=== PATIENT | male | born 1980 ===

== ENCOUNTER 2022-05-23 11:08 | Emergency (ER) | payer SELFPAY ==
[2022-05-23 11:14] VITALS: BP 153/110; BP 160/100; PULSE 116; PULSE 124; O2SAT 96; O2SAT 98; BMI 24.4
[2022-05-23 11:21] LABS: Glucose, Whole Blood 105 mg/dL (60-115)
--- NOTE | 2022-05-23 11:21 | ED.GENADULT ---
HPI - General Adult General Chief complaint: Overdose Stated complaint: OVERDOSE,4 MG NARCAN Time Seen by Provider: 05/23/22 11:20 Source: patient Mode of arrival: EMS Limitations: no limitations History of Present Illness HPI narrative: 42 yo male with HTN went to urgent care center here with c/o being given 8mg narcan by urgent care for stumbling - he has normal vs and BS - he refuses all interventions with EMS, was awake and talking on scene with EMS no pinpoint pupils or apnea reported. The patient is upset here is here and denies any substance abuse MD complaint: ? found stumbling, reportedly given 8mg narcan by urgent care awake with EM Onset (ago): minute(s) (just prior to arrival ) Severity: mild Relieving factors: none Associated symptoms: denies other symptoms Treatments prior to arrival: other (?narcan 8mg) Review of Systems Review of Systems: Constitutional : No Fever, No Chills, No Fatigue, No Malaise Cardiovascular : No Chest Pain, No SOB Respiratory : No Cough, No Sputum, No Wheezing Gastrointestinal : No Nausea, No Vomiting, No Diarrhea, No abdominal Pain, No Hematochezia, No Melena Genitourinary : No Dysuria, No Urinary Frequency, No Hematuria, Musculoskeletal : No joint pain, No Myalgias Skin : No Skin Lesions, No rash Neuro : No Weakness, No Numbness, No Dizziness, No Headache Psych : No Anxiety/Panic, No Depression, no SI/HI All other systems reviewed and are negative PMFSH Past Medical History Attestation statement: The following information was validated with the patient. Medical History HTN (hypertension) Social History Social History (Updated 05/23/22 @ 11:26 by Kasia Morgan DO) Patient Tobacco Use Status: Current someday Tobacco user Use of substances other than those prescribed or required for medical reasons: No Physical Exam ED Vital Signs: Vital Signs - 24 hr 05/23/22 11:14 Pulse Rate 116 H Blood Pressure 153/110 H Pulse Oximetry 96 BMI result Body Mass Index 24.4 Appearance: Alert. Oriented X3. No acute distress. calm and cooperative Eyes: Pupils equal, round and reactive to light. ENT: Pharynx normal. Neck: Normal inspection. Neck supple. CVS: Normal heart rate and rhythm. Pulses normal. Respiratory: No respiratory distress. Breath sounds normal. Abdomen: Soft and nontender. Skin: Skin warm and dry. Normal skin color. Normal skin turgor. Extremities: No lower extremity edema. No calf ttp Neuro: Oriented X 3. No motor deficit. No sensory deficit. Medical Decision Making MDM Narrative Medical decision making narrative: 42 yo male with hx of HTN (has not filled meds yet) went to the clinic today felt a little dizzy EMS notes he was given a total of 8mg narcan - there are no reports of apnea, pinpoint pupils, he adamantly denies opiate overdose or use. He is GCS 15 - does not want to stay, VS stable, BS stable no signs of head trauma patient is leaving AMA at this time. I cannot section him - has no SI, he is here with his cousin who is waiting outside for him Discharge Plan Discharge Clinical Impression: Normal exam Patient Disposition: Left Against Medical Advice Instructions: Normal Exam (ED), Against Medical Advice (ED) Additional Instructions: return to ED for any worsening symptoms or concerns please fill your blood pressure medications you refused work up in the emergency department - you can return at any time.
--- NOTE | 2022-05-23 11:21 | PC.NURSE ---
patient a&ox3, speaking in full sentences, ambulating with a steady gait, pt not wanting to stay in the ed, provider at bedside and is aware, security at bedside as well, pt allowed vitals and a budget consultant to be applied momentarily and has since been removed with the ok of the provider, budget consultant was sinus tach 100s, pt is discharging against medical advice.
== END 2022-05-23 11:33 | disposition left against medical advice (07) ==
LOC: HO.ED 11:30
PROVIDERS: Emergency Provider Emergency Medicine
DX: T65.91XA Toxic effect of unspecified substance, accidental (unintentional), initial encounter (principal); Y92.9 Unspecified place or not applicable; Z79.899 Other long term (current) drug therapy
CPT/HCPCS: 82947; 99282